=== PATIENT | female | born 1955 | race Caucasian/White ===

== ENCOUNTER 2018-12-25 10:40 | Emergency (ER) | payer OTHER, MEDICAID ==
[~2018-12-25] VITALS: Ht 154.9 cm; Wt 72.6 kg
[2018-12-25 10:40] VITALS: BP 138/74
--- NOTE | 2018-12-25 10:44 | NUR ---
CRISTOBAL RUTLEDGE TAKEN TO BED 7
--- NOTE | 2018-12-25 11:08 | NUR ---
MATY FROM [facility]. PER EMS, PT STARTED HAVING RASHES ON THE UPPERBACK AND LOWER ABDOMEN. PER EMS, PT HAS BEEN SCRATCHING THE AREA, NO SOB, NO FEVER, NO N/V/D. PT AAOX1-2, RESPONDS TO HER NAME. HAS REDNESS NEAR NECK AND AT LOWER CHEST REGION. PT RESTING COMFORTABLY IN HER BED. SIDE RAILS UPX2, BED AT THE LOWEST POSITION. ER MD TO SEE THE PT. WILL CONTINUE TO MONITOR PT. PMH: DEMENTIA, SCHIZOPHRENIA, MUSCLE WEAKNESS, PSYCHOSIS MED RX: XANAX, MEMANTINE, RESPERIDONE, ARICEPT ALLERGIES:DENIES
--- NOTE | 2018-12-25 11:16 | NUR ---
GURJIT FREEMAN ASSESSING PT AT THE BEDSIDE.
--- NOTE | 2018-12-25 11:32 | NUR ---
ADMINISTERED MEDS TO PT ORDERED. REORIENTED PT THAT SHE IS AT HOSPITAL. PT HAS HX OF DEMENTIA. FOLLOWS COMMAND. PT RESTING COMFORATBLY IN BED AT THSI TIME.
--- NOTE | 2018-12-25 12:02 | NUR ---
CALLED [facility], TALKED TO FRED. 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 INFORMED HER OF THE DIAGNIOSIS AND MEDS. 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
--- NOTE | 2018-12-25 12:08 | NUR ---
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
[2018-12-25 12:23] VITALS: BP 138/74
--- NOTE | 2018-12-25 12:23 | NUR ---
Patient discharged with v/s stable. Written and verbal after care instructions given and explained. Patient alert, oriented and verbalized understanding of instructions. Ambulatory with steady gait. All questions addressed prior to discharge. ID band removed. Patient advised to follow up with PMD. Rx of BEDADRYL 250MG given. Patient educated on indication of medication including possible reaction and side effects. Opportunity to ask questions provided and answered.
== END 2018-12-25 12:23 | disposition home or self-care (01) ==
LOC: MED 10:40
DX: L30.9 Dermatitis, unspecified (principal); F03.90 Unspecified dementia, unspecified severity, without behavioral disturbance, psychotic disturbance, mood disturbance, and anxiety
CPT/HCPCS: 99282; Q0163

== ENCOUNTER 2019-12-30 07:12 | Emergency (ER) | payer OTHER, MEDICAID ==
[~2019-12-30] VITALS: Ht 157.5 cm; Wt 75.7 kg
[2019-12-30 07:20] VITALS: BP 136/69
[2019-12-30 09:35] VITALS: BP 136/69
== END 2019-12-30 09:36 | disposition home or self-care (01) ==
LOC: MED 07:12
DX: N39.0 Urinary tract infection, site not specified (principal); R25.1 Tremor, unspecified; R41.82 Altered mental status, unspecified; F03.90 Unspecified dementia, unspecified severity, without behavioral disturbance, psychotic disturbance, mood disturbance, and anxiety; F20.9 Schizophrenia, unspecified
CPT/HCPCS: 81002; 87086; 87186; 99283